=== PATIENT | female | born 1980 | race Hispanic/Latino ===

== ENCOUNTER 2021-01-22 21:18 | Emergency (ER) | payer OTHER, SELFPAY ==
[~2021-01-22] VITALS: Ht 165.1 cm; Wt 81.6 kg
[2021-01-22 21:26] VITALS: BP 185/106
[2021-01-23] MEDS ORDERED: FAMOTIDINE 20MG VIAL IV ONE
[2021-01-23] MEDS ORDERED: DiphenhydrAMINE HCL 50 MG/ML VIAL IV ONE
[2021-01-23] MEDS ORDERED: IBUPROFEN 400 MG TABLET ONE (01:13)
[2021-01-23] MEDS ORDERED: DIPH25 PO (01:30)
[2021-01-23] MEDS ORDERED: FAMO-136 PO (01:30)
[2021-01-23] MEDS ORDERED: ALBUHFA IH (01:30)
[2021-01-23] MEDS ORDERED: IBUPROFEN 800 MG TAB PO ONE (02:00)
== END 2021-01-23 01:54 | disposition home or self-care (01) ==
LOC: EDH 21:18
DX: U07.1 COVID-19 (principal); R21 Rash and other nonspecific skin eruption; L29.9 Pruritus, unspecified; Z88.0 Allergy status to penicillin; Z93.3 Colostomy status; Z79.1 Long term (current) use of non-steroidal anti-inflammatories (NSAID)
CPT/HCPCS: 71045; 87426; 87804; 96374; 96375; J1200; J3490